=== PATIENT | male | born 1965 | race Caucasian/White ===

== ENCOUNTER → 2017-12-28 07:44 | Outpatient (CLI) | payer OTHER ==
[~2017-12-28 07:44] MED LIST: GILTUSS TR TAB1 EACH PO; NAPR500T14 PO; SYNTHROID50 MCG; SYNTHROID50 MCG PO; ZITHROMAX TRI-500 MG PO; ZYRTEC10 MG PO
== END | disposition home or self-care (01) ==
LOC: LAB 07:44
DX: H01.002 Unspecified blepharitis right lower eyelid (principal); E03.8 Other specified hypothyroidism

== ENCOUNTER 2018-04-12 11:13 | Outpatient (CLI) | payer OTHER ==
[2018-04-13] MEDS ORDERED: ULTRAM50 MG PO (05:41)
[2018-04-17] MEDS ORDERED: NORFLEX100MG PO (09:27)
== END 2018-04-12 11:40 | disposition home or self-care (01) ==
LOC: RAD 11:13
DX: M54.89 Other dorsalgia (principal)

== ENCOUNTER 2018-04-13 00:34 | Emergency (ER) | payer OTHER ==
[~2018-04-13] VITALS: Ht 167.6 cm; Wt 85.7 kg
[2018-04-13] MEDS ORDERED: ULTRAM50 MG PO (05:41)
[2018-04-17] MEDS ORDERED: NORFLEX100MG PO (09:27)
== END 2018-04-13 05:45 | disposition home or self-care (01) ==
LOC: ER 00:34
DX: M43.16 Spondylolisthesis, lumbar region (principal); M54.5 Low back pain

== ENCOUNTER 2018-04-20 08:45 | Emergency (ER) | payer OTHER ==
[~2018-04-20] VITALS: Ht 167.6 cm; Wt 85.7 kg
[~2018-04-20 08:45] MED LIST changes: +NORFLEX100MG PO; +ULTRAM50 MG PO
== END 2018-04-20 10:39 | disposition home or self-care (01) ==
LOC: ER 08:45
DX: M25.562 Pain in left knee (principal)

== ENCOUNTER 2018-09-03 10:23 | Outpatient (CLI) | payer OTHER | END 2018-09-05 15:32 | disposition home or self-care (01) | LOC: RAD 10:23 | DX: M54.2 Cervicalgia (principal); M54.6 Pain in thoracic spine ==

== ENCOUNTER 2018-11-15 07:36 | Outpatient (CLI) | payer OTHER | END 2018-11-15 15:00 | disposition home or self-care (01) | LOC: LAB 07:36 | DX: D64.89 Other specified anemias (principal); N39.0 Urinary tract infection, site not specified; R10.9 Unspecified abdominal pain; E03.8 Other specified hypothyroidism; E78.49 Other hyperlipidemia; E11.9 Type 2 diabetes mellitus without complications; R73.09 Other abnormal glucose; I10 Essential (primary) hypertension; Z13.6 Encounter for screening for cardiovascular disorders ==

== ENCOUNTER → 2019-01-17 08:05 | Outpatient (CLI) | payer OTHER | END | disposition home or self-care (01) | LOC: LAB 08:05 | DX: E03.8 Other specified hypothyroidism (principal); E78.49 Other hyperlipidemia; I10 Essential (primary) hypertension; Z00.00 Encounter for general adult medical examination without abnormal findings ==

== ENCOUNTER → 2019-01-23 | Outpatient (CLI) | payer OTHER | END | disposition home or self-care (01) | LOC: NUCLEAR 01-22 08:00 | DX: I10 Essential (primary) hypertension (principal); E66.3 Overweight; R06.00 Dyspnea, unspecified ==

== ENCOUNTER → 2019-02-28 10:42 | Outpatient (CLI) | payer OTHER | END | disposition home or self-care (01) | LOC: SONOGRAMA 10:42 | DX: R31.29 Other microscopic hematuria (principal) ==

== ENCOUNTER → 2020-05-13 | Outpatient (CLI) | payer OTHER | END | disposition home or self-care (01) | LOC: PPH VACUNA 07:00 | DX: Z23 Encounter for immunization (principal) ==

== ENCOUNTER 2020-07-26 13:53 | Emergency (ER) | payer OTHER ==
[~2020-07-26] VITALS: Ht 167.6 cm; Wt 85.7 kg
[2020-07-26] MEDS ORDERED: ATACAND16 MG PO (14:09)
== END 2020-07-26 15:14 | disposition home or self-care (01) ==
LOC: ER 13:53
DX: L84 Corns and callosities (principal)

== ENCOUNTER 2020-08-18 08:02 | Outpatient (CLI) | payer OTHER ==
[~2020-08-18 08:02] MED LIST changes: +ATACAND16 MG PO
== END 2020-08-18 08:10 | disposition home or self-care (01) ==
LOC: LAB 08:02
PROVIDERS: ATTEND General Practice
DX: Z00.00 Encounter for general adult medical examination without abnormal findings (principal)

== ENCOUNTER 2020-09-17 12:33 | Outpatient (CLI) | payer OTHER | END 2020-09-17 12:39 | disposition home or self-care (01) | LOC: RAD 12:33 | PROVIDERS: ATTEND Podiatrist | DX: M77.31 Calcaneal spur, right foot (principal); M77.32 Calcaneal spur, left foot ==

== ENCOUNTER 2020-09-21 07:29 | Outpatient (CLI) | payer OTHER | END 2020-09-21 07:33 | disposition home or self-care (01) | LOC: LAB 07:29 | PROVIDERS: ATTEND Internal Medicine Cardiovascular Disease | DX: E78.49 Other hyperlipidemia (principal); D64.89 Other specified anemias; N39.0 Urinary tract infection, site not specified; R10.84 Generalized abdominal pain; E03.8 Other specified hypothyroidism; R73.09 Other abnormal glucose; R06.09 Other forms of dyspnea; I10 Essential (primary) hypertension; E66.3 Overweight ==

== ENCOUNTER 2020-12-24 07:37 | Outpatient (CLI) | payer OTHER | END 2020-12-24 13:54 | disposition home or self-care (01) | LOC: LAB 07:37 | PROVIDERS: ATTEND Internal Medicine Cardiovascular Disease | DX: R06.09 Other forms of dyspnea (principal); I10 Essential (primary) hypertension; E66.3 Overweight; D64.89 Other specified anemias; R10.9 Unspecified abdominal pain; E78.49 Other hyperlipidemia; E55.9 Vitamin D deficiency, unspecified ==

== ENCOUNTER 2021-01-06 07:25 | Outpatient (CLI) | payer OTHER | END 2021-01-06 07:27 | disposition home or self-care (01) | LOC: NUCLEAR 07:25 | PROVIDERS: ATTEND Internal Medicine Cardiovascular Disease | DX: I20.9 Angina pectoris, unspecified (principal); I10 Essential (primary) hypertension; R06.00 Dyspnea, unspecified | CPT/HCPCS: 78452; 93017; A9500; J0153 ==

== ENCOUNTER 2021-03-08 10:42 | Emergency (ER) | payer OTHER ==
[~2021-03-08] VITALS: Ht 167.6 cm; Wt 84.4 kg
[2021-03-08] MEDS ORDERED: ZITHROMAX500 MG PO (15:10)
[2021-03-08] MEDS ORDERED: SYMBICORT 16010.2 GM IH (15:10)
[2021-03-08] MEDS ORDERED: MUCINEX DM ER1 EAC1 PO (15:10)
[2021-03-08] MEDS ORDERED: PROMETH-CODEIN 65 ML PO (15:10)
== END 2021-03-08 15:42 ==
LOC: ER 10:42
DX: J06.9 Acute upper respiratory infection, unspecified (principal); A49.3 Mycoplasma infection, unspecified site

== ENCOUNTER 2021-03-28 08:00 | Outpatient (CLI) | payer OTHER ==
[~2021-03-28 08:00] MED LIST changes: +MUCINEX DM ER1 EAC1 PO; +PROMETH-CODEIN 65 ML PO; +SYMBICORT 16010.2 GM IH; +ZITHROMAX500 MG PO
== END 2021-03-28 08:30 | disposition home or self-care (01) ==
LOC: PPH VACUNA 08:00
DX: Z23 Encounter for immunization (principal)

== ENCOUNTER → 2021-03-28 09:39 | Outpatient (CLI) | payer OTHER | END | disposition home or self-care (01) | LOC: LAB 09:39 | PROVIDERS: ATTEND General Practice | DX: Z11.3 Encounter for screening for infections with a predominantly sexual mode of transmission (principal) ==

== ENCOUNTER 2021-03-31 08:03 | Outpatient (CLI) | payer OTHER | END 2021-03-31 08:18 | disposition home or self-care (01) | LOC: LAB 08:03 | PROVIDERS: ATTEND Internal Medicine Cardiovascular Disease | DX: D64.89 Other specified anemias (principal); N39.0 Urinary tract infection, site not specified; R10.84 Generalized abdominal pain; E03.8 Other specified hypothyroidism; E78.49 Other hyperlipidemia; E55.9 Vitamin D deficiency, unspecified; E11.9 Type 2 diabetes mellitus without complications; I10 Essential (primary) hypertension ==

== ENCOUNTER 2021-04-18 08:00 | Outpatient (CLI) | payer OTHER | END 2021-04-18 08:30 | disposition home or self-care (01) | LOC: PPH VACUNA 08:00 | DX: Z23 Encounter for immunization (principal) ==

== ENCOUNTER 2021-05-02 09:16 | Outpatient (CLI) | payer OTHER | END 2021-05-02 09:46 | disposition home or self-care (01) | LOC: TOM 09:16 | PROVIDERS: ATTEND Internal Medicine Sports Medicine | DX: R10.32 Left lower quadrant pain (principal) ==

== ENCOUNTER 2021-05-23 09:13 | Emergency (ER) | payer OTHER ==
[~2021-05-23] VITALS: Ht 167.6 cm; Wt 85.7 kg
== END 2021-05-23 10:35 | disposition home or self-care (01) ==
LOC: ER 09:13
DX: H00.11 Chalazion right upper eyelid (principal)

== ENCOUNTER 2021-06-08 08:52 | Outpatient (CLI) | payer OTHER | END 2021-06-08 09:04 | disposition home or self-care (01) | LOC: LAB 08:52 | PROVIDERS: ATTEND Obstetrics & Gynecology | DX: D64.89 Other specified anemias (principal); N39.0 Urinary tract infection, site not specified; E78.00 Pure hypercholesterolemia, unspecified; E03.8 Other specified hypothyroidism; E13.69 Other specified diabetes mellitus with other specified complication ==

== ENCOUNTER 2021-07-08 11:20 | Outpatient (CLI) | payer OTHER | END 2021-07-08 11:44 | disposition home or self-care (01) | LOC: RAD 11:20 | DX: M99.01 Segmental and somatic dysfunction of cervical region (principal); M99.02 Segmental and somatic dysfunction of thoracic region; M99.03 Segmental and somatic dysfunction of lumbar region ==

== ENCOUNTER 2021-07-11 08:00 | Outpatient (CLI) | payer OTHER | END 2021-07-11 08:30 | disposition home or self-care (01) | LOC: PPH VACUNA 08:00 | PROVIDERS: ATTEND Emergency Medicine Pediatric Emergency Medicine | DX: Z23 Encounter for immunization (principal) ==

== ENCOUNTER → 2021-07-11 | Outpatient (CLI) | payer OTHER | END | disposition home or self-care (01) | LOC: PPH VACUNA 08:00 | PROVIDERS: ATTEND Emergency Medicine Pediatric Emergency Medicine | DX: Z23 Encounter for immunization (principal) ==

== ENCOUNTER 2021-08-22 09:33 | Outpatient (CLI) | payer OTHER | END 2021-08-22 12:33 | disposition home or self-care (01) | LOC: LAB 09:33 | DX: U07.1 COVID-19 (principal) ==

== ENCOUNTER 2021-08-30 13:38 | Outpatient (CLI) | payer OTHER | END 2021-08-30 15:06 | disposition home or self-care (01) | LOC: LAB 13:38 | DX: U07.1 COVID-19 (principal) ==

== ENCOUNTER 2021-09-13 07:35 | Outpatient (CLI) | payer OTHER | END 2021-09-13 14:42 | disposition home or self-care (01) | LOC: LAB 07:35 | PROVIDERS: ATTEND General Practice | DX: R10.2 Pelvic and perineal pain (principal); Z00.00 Encounter for general adult medical examination without abnormal findings; E78.49 Other hyperlipidemia; E55.9 Vitamin D deficiency, unspecified; N39.0 Urinary tract infection, site not specified; N40.0 Benign prostatic hyperplasia without lower urinary tract symptoms ==

== ENCOUNTER 2021-09-21 08:00 | Outpatient (CLI) | payer OTHER | END 2021-09-21 08:30 | disposition home or self-care (01) | LOC: PPH VACUNA 08:00 | PROVIDERS: ATTEND Emergency Medicine Pediatric Emergency Medicine | DX: Z23 Encounter for immunization (principal) ==

== ENCOUNTER 2021-11-10 11:08 | Outpatient (CLI) | payer OTHER | END 2021-11-10 11:12 | disposition home or self-care (01) | LOC: RAD 11:08 | PROVIDERS: ATTEND Pediatrics | DX: R60.0 Localized edema (principal) ==

== ENCOUNTER 2021-12-15 15:38 | Outpatient (CLI) | payer OTHER | END 2021-12-15 15:54 | disposition home or self-care (01) | LOC: RAD 15:38 | PROVIDERS: ATTEND General Practice | DX: M25.512 Pain in left shoulder (principal) ==

== ENCOUNTER 2021-12-17 07:32 | Outpatient (CLI) | payer OTHER | END 2021-12-17 07:37 | disposition home or self-care (01) | LOC: LAB 07:32 | PROVIDERS: ATTEND Specialist/Technologist, Other Nephrology | DX: N18.2 Chronic kidney disease, stage 2 (mild) (principal); Z12.9 Encounter for screening for malignant neoplasm, site unspecified ==

== ENCOUNTER 2021-12-29 07:05 | Outpatient (CLI) | payer OTHER | END 2021-12-29 07:12 | disposition home or self-care (01) | LOC: SONOGRAMA 07:05 | PROVIDERS: ATTEND Specialist/Technologist, Other Nephrology | DX: R10.9 Unspecified abdominal pain (principal); N18.30 Chronic kidney disease, stage 3 unspecified; R31.9 Hematuria, unspecified ==

== ENCOUNTER 2022-04-10 07:30 | Outpatient (CLI) | payer OTHER | END 2022-04-10 07:31 | disposition home or self-care (01) | LOC: LAB 07:30 | PROVIDERS: ATTEND Internal Medicine Gastroenterology | DX: K76.0 Fatty (change of) liver, not elsewhere classified (principal); K57.30 Diverticulosis of large intestine without perforation or abscess without bleeding ==

== ENCOUNTER 2022-04-27 07:04 | Outpatient (CLI) | payer OTHER | END 2022-04-27 07:05 | disposition home or self-care (01) | LOC: LAB 07:04 | PROVIDERS: ATTEND Internal Medicine Cardiovascular Disease | DX: D64.9 Anemia, unspecified (principal); R10.9 Unspecified abdominal pain; E78.5 Hyperlipidemia, unspecified; E55.9 Vitamin D deficiency, unspecified; R73.09 Other abnormal glucose ==